=== PATIENT | female | born 1955 | race Caucasian/White ===

== ENCOUNTER → 2018-01-28 | Outpatient (CLI) | payer OTHER ==
[~2018-01-28] MED LIST: ALLOPURINOL 10100 M1 PO; COLCHICINE0.6 MG; DOXYCYCLINE 10100 M1 PO; FELODIPINE ER10 MG PO; FLEXERIL PO; FOLIC ACID1 MG PO; LANTUS SUBQ; LASIX 40 MG TAB40 M1; LASIX 40 MG TAB40 M2; LIPITOR40 MG PO; MAGNESIUM GLUC500 MG; METOLAZONE 5 MG5 M1; NORCO 5-325 TA1 EACH PO; NOVOLOG100 UNIT/1 SUBQ; OMEGA-31000 M1 PO; VITAMIN D3400 UNIT PO
== END ==
LOC: M.RAD 11:43
DX: Z12.31 Encounter for screening mammogram for malignant neoplasm of breast (principal); M85.89 Other specified disorders of bone density and structure, multiple sites; Z78.0 Asymptomatic menopausal state

== ENCOUNTER 2018-06-14 19:22 | Inpatient (IN) | payer OTHER ==
[~2018-06-14] VITALS: Ht 172.7 cm; Wt 129.0 kg
[2018-06-14] VITALS (9 sets, daily range): BP systolic 115–134; BP diastolic 52–65
[~2018-06-14 19:22] MED LIST changes: -COLCHICINE0.6 MG; -LASIX 40 MG TAB40 M2
[2018-06-14] MEDS ORDERED: COLCHICINE0.6 MG (19:30)
[2018-06-14] MEDS ORDERED: LASIX 40 MG TAB40 M2 (19:33)
[2018-06-14 20:07] LABS: HEMATOCRIT 37.2 % (37.0-47.0); HEMOGLOBIN 11.8 gm/dL (12.0-15.0); MCH 28.1 pg (26.0-34.0); MCHC 31.7 g/dL (28.0-37.0); MCV 88.8 fL (80.0-100.0); MPV 8.6 fl. (7.2-11.1); NUCLEATED RBCS 0 /100WBC; PLATELET COUNT* 155 thou/uL (150-400); RBC 4.19 mil/uL (4.20-5.00); WBC 15.5 thou/uL (4.0-11.0)
[2018-06-14 20:11] LABS: INFLUENZA A ANTIGEN None Detected (None Detect); INFLUENZA B ANTIGEN None Detected (None Detect)
[2018-06-14 20:26] LABS: ALBUMIN 2.4 g/dL (3.4-5.0); CALCIUM 9.5 mg/dL (8.5-10.1); CREATININE 3.6 mg/dL (0.6-1.3); POTASSIUM 3.4 mmol/L (3.5-5.1); TOTAL BILIRUBIN 0.7 mg/dL (<0.1-1.0); TOTAL PROTEIN 7.4 g/dL (6.4-8.2); URIC ACID* 7.9 mg/dL (2.6-7.2)
[2018-06-14 20:29] LABS: TROPONIN-I LEVEL 3.45 ng/mL (<0.06)
[2018-06-14 20:33] LABS: ABSOLUTE LYMPHOCYTES 0.9 thou/uL (0.8-5.3); ABSOLUTE MONOCYTES 0.8 thou/uL (0.0-1.2); ABSOLUTE NEUTROPHILS 13.8 thou/uL (1.6-8.1); ANISOCYTOSIS 1+; PLATELET ESTIMATE ADEQUATE
[2018-06-14 20:56] LABS: INR 1.2; PROTIME 11.8 Seconds (9.20-11.50)
[2018-06-14 23:30] LABS: ALBUMIN 2.1 g/dL (3.4-5.0); CALCIUM 9.1 mg/dL (8.5-10.1); CREATININE 3.4 mg/dL (0.6-1.3); MAGNESIUM 1.7 mg/dL (1.8-2.4); PHOSPHORUS* 3.3 mg/dL (2.5-4.9); POTASSIUM 3.3 mmol/L (3.5-5.1)
[2018-06-14 23:33] LABS: TROPONIN-I LEVEL 2.89 ng/mL (<0.06)
[2018-06-15] VITALS (78 sets, daily range): BP systolic 85–143; BP diastolic 45–71
--- NOTE | 2018-06-15 01:26 | NUR ---
Pt admitted to ICU from ED at 2215 on 06/14/2018. Pt states she has been ill since Wednesday, which is also the last day she took any insulin. BG 596 per CMP upon arrival to ED, then 603 per BMP which occured 10-15 minutes after insulin gtt initiated. At this point, BG remains above 501 with gtt recently increased to 7 units/hr per protocol. Will continue to monitor. Pt reports she decided to come to ED due to severe weakness and inability to get around at home. Pt lives by herself in apartment. All home medications reviewed, and pt's son directed to take pt's medications home with him. Pt states she just started taking a new medication for BP that she thinks begins with "m-i-k," perhaps micardis. States that was not among the home meds that were brought in when she went to ED. Will attempt to clarify in am.
[2018-06-15 03:11] LABS: ABSOLUTE LYMPHOCYTES 0.8 thou/uL (0.8-5.3); ABSOLUTE MONOCYTES 0.5 thou/uL (0.0-1.2); ABSOLUTE NEUTROPHILS 12.1 thou/uL (1.6-8.1); BASOPHILS 0.2 %; HEMATOCRIT 34.1 % (37.0-47.0); HEMOGLOBIN 10.9 gm/dL (12.0-15.0); MCH 28.8 pg (26.0-34.0); MCHC 32.1 g/dL (28.0-37.0); MCV 89.7 fL (80.0-100.0); MONOCYTES 3.8 %; MPV 9.1 fl. (7.2-11.1); NUCLEATED RBCS 0 /100WBC; PLATELET COUNT* 139 thou/uL (150-400); RDW-CV 17.9 % (10.5-14.5); WBC 13.4 thou/uL (4.0-11.0)
[2018-06-15 03:20] LABS: ALBUMIN 2.1 g/dL (3.4-5.0); CALCIUM 8.7 mg/dL (8.5-10.1); CREATININE 3.4 mg/dL (0.6-1.3); TOTAL BILIRUBIN 0.5 mg/dL (<0.1-1.0); TOTAL PROTEIN 5.8 g/dL (6.4-8.2)
[2018-06-15 03:25] LABS: POTASSIUM 2.9 mmol/L (3.5-5.1)
--- NOTE | 2018-06-15 06:44 | NUR ---
Pt experiencing intermittent and fleeting nausea late in the shift, especially when attempting to turn and when about to be given po meds. Held po meds and have not turned pt since 0300. Previous to that pt had requested to turn every 2 hours. Pt has bernard draining clear yellow urine. BG slowly decreasing with insulin gtt. Latest BG 342, insulin gtt running at 19 units/hr. K+ 2.9. Not able to take po meds at this time due to nausea. Will continue to monitor.
[2018-06-15 08:08] LABS: CHOLESTEROL 83 mg/dL (<200); HDL CHOLESTEROL 9 mg/dL (>40); LDL CHOLESTEROL 35 mg/dL (<100); TC:HDL 9.2 Ratio (Not establshd); TRIGLYCERIDE 196 mg/dL (<150); VLDL 39 mg/dL (<40)
[2018-06-15 08:11] LABS: SERUM ASSESSMENT Clear
[2018-06-15 08:38] LABS: URINE BILIRUBIN NEGATIVE (Negative); URINE BLOOD 3+ (Negative); URINE CLARITY CLEAR; URINE COLOR YELLOW; URINE GLUCOSE-RANDOM 1+ (Negative); URINE KETONES NEGATIVE (Negative); URINE LEUKOCYTES-REFLEX NEGATIVE (Negative); URINE NITRITE-REFLEX NEGATIVE (Negative); URINE PROTEIN 2+ (Negative); URINE SPECIFIC GRAVITY 1.025 (1.005-1.030); URINE UROBILINOGEN 0.2 E.U./dl (0.2-1.0)
[2018-06-15 08:48] LABS: BACTERIA-REFLEX 1-9 Few /HPF (None Seen); CASTS None Seen /LPF (None Seen); CRYSTALS None Seen /LPF (None Seen); MUCUS None Seen strn/LPF (None Seen); SQUAMOUS 0-3 Few /LPF (0-3); URINE RBC 3-10 Few /HPF (0-2); URINE WBC-REFLEX 0-5 Rare /HPF (0-5)
--- NOTE | 2018-06-15 11:37 | EKG ---
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1955 Requested By: Enoch Ha Order Number: [id number] MD: Miquel Nguyen Measurements Intervals [place] Rate: 92 P: 239 GA: 269 QRS: 39 QRSD: 112 T: 163 QT: 340 QTc: 421 Interpretive Statements Sinus or ectopic atrial rhythm Multiple ventricular premature complexes Prolonged GA interval Anteroseptal infarct, old Repol abnrm suggests ischemia, diffuse leads Compared to ECG 07/18/2017 01:48:23 Ventricular premature complex(es) now present Bradycardia no longer present Electronically Signed On 06-15-2018 11:36:54 HAND BUFFING WHEEL FORMER by Miquel Nguyen [email or web address] <ELECTRONICALLY SIGNED> By: Miquel Nguyen MD, FACC 06/15/18 1136 56 56 Miquel Nguyen MD, FACC /EPI
--- NOTE | 2018-06-15 15:01 | 2DMMODE ---
[place] [address] 2 D/M-MODE ECHOCARDIOGRAM Name: ONI OLIVARES Room: [facility] IN [facility]#: [id number] Admission: 06/14/18 Attend Phys: Francisco Wells Discharge: Date of : 51 Date of Service: 06/15/18 1500 Report #: [id number] THIS REPORT FOR: //name// APPROVED REPORT Study performed: 06/15/2018 10:26:00 EXAM: Comprehensive 2D, Doppler, and color-flow Echocardiogram Patient Location: In-Patient Room #: [facility] Status: routine BSA: 2.27 HR: 80 bpm BP: 136/59 mmHg Rhythm: NSR Other Information Technically limited study due to body habitus, poor endocardial definition. Indications Abnormal ECG Sepsis Elevated Troponin Echo Enhancing Agent Indication: Endocardial border delineation Agent(s) / Amount(s) Used: Optison 3 cc 2D Dimensions IVSd: 12.55 (7-11mm) LVOT Diam: 21.22 (18-24mm) LVDd: 56.15 mm PWd: 9.68 (7-11mm) Ascending Ao: 37.46 (22-36mm) LVDs: 41.95 (25-40mm) Aortic Root: 31.00 mm Volumes Left Atrial Volume (Systole) LA ESV Index: 39.80 mL/m2 Aortic Valve AoV Peak Thomas.: 2.05 m/s AO Peak Gr.: 16.73 mmHg LVOT Max P.29 mmHg AO Mean Gr.: 10.30 mmHg LVOT Mean P.21 mmHg LVOT Max V: 1.04 m/[place] [address] 2 D/M-MODE ECHOCARDIOGRAM Name: ONI OLIVARES Braxton Room: [address] IN .R.#: [id number] Admission: 06/14/18 Attend Phys: Francisco Wells Discharge: Date of : 51 Date of Service: 06/15/18 1500 Report #: [id number] AO V2 VTI: 40.07 cm LVOT Mean V: 0.69 m/s THOMAS (VTI): 1.78 cm2 LVOT V1 VTI: 20.17 cm Mitral Valve E/A Ratio: 1.36 MV Decel. Time: 142.96 ms MV E Max Thomas.: 1.11 m/s MV PHT: 41.46 ms MVA (PHT): 5.31 cm2 TDI E/Lateral E': 8.54 E/Medial E': 12.33 Medial E' Thomas.: 0.09 m/s Lateral E' Thomas.: 0.13 m/s Pulmonary Valve PV Peak Thomas.: 1.02 m/s PV Peak Gr.: 4.17 mmHg Tricuspid Valve RAP Estimate: 5.00 mmHg TR Peak Gr.: 24.14 mmHg RVSP: 29.00 mmHg PA Pressure: 29.00 mmHg Left Ventricle The left ventricle is normal size. inferior hypokinesis There is normal left ventricular wall thickness. Left ventricular systolic function is moderately decreased. LVEF is 30-35%. The left ventricular diastolic function is normal. Right Ventricle The right ventricle is normal size. The right ventricular systolic function is normal. Atria Left atrium is mildly dilated. The right atrium size is normal. Aortic Valve Mild aortic valve sclerosis. No aortic regurgitation is present. Mild aortic stenosis. Mitral Valve There is mitral annular calcification. Mild mitral regurgitation. No evidence of mitral valve stenosis. [place] [address] 2 D/M-MODE ECHOCARDIOGRAM Name: JALILCésarONI J Room: [address]#: [id number] Admission: 06/14/18 Attend Phys: Francisco Wells Discharge: Date of : 51 Date of Service: 06/15/18 1500 Report #: [id number] The tricuspid valve is normal in structure. Mild tricuspid regurgitation. No pulmonary hypertension. Pulmonic Valve The pulmonary valve is normal in structure. Trace pulmonic regurgitation. Great Vessels The aortic root is normal in size. IVC is normal in size and collapses >50% with inspiration. Pericardium There is no pericardial effusion. <Conclusion> LVEF is 30-35%. Left atrium is mildly dilated. Mild aortic stenosis. Mild mitral regurgitation. <ELECTRONICALLY SIGNED> By: Miquel Nguyen MD, FACC 06/15/18 1500 1500 99 Miquel Nguyen MD, FACC /INF
[2018-06-16] VITALS (13 sets, daily range): BP systolic 102–140; BP diastolic 56–74
[2018-06-16 03:52] LABS: HEMATOCRIT 32.4 % (37.0-47.0); HEMOGLOBIN 10.4 gm/dL (12.0-15.0); MCH 28.3 pg (26.0-34.0); MCHC 32.3 g/dL (28.0-37.0); MCV 87.7 fL (80.0-100.0); MPV 9.1 fl. (7.2-11.1); RBC 3.69 mil/uL (4.20-5.00); RDW-CV 17.9 % (10.5-14.5); WBC 12.8 thou/uL (4.0-11.0)
[2018-06-16 04:23] LABS: ALBUMIN 1.8 g/dL (3.4-5.0); CALCIUM 9.3 mg/dL (8.5-10.1); CREATININE 3.6 mg/dL (0.6-1.3); MAGNESIUM 1.9 mg/dL (1.8-2.4); POTASSIUM 3.6 mmol/L (3.5-5.1); TOTAL BILIRUBIN 0.5 mg/dL (<0.1-1.0); TOTAL PROTEIN 6.6 g/dL (6.4-8.2)
--- NOTE | 2018-06-16 05:50 | NUR ---
PT. PROGRESSING TOWARDS GOALS. IVF REMAIN INFUSING. PT. ORIENTED. SPARKS CATHETER REMAINS IN PLACE. SINUS RHYTHM WITH BBB. ONLY COMPLAINS OF PAIN WHEN TOUCHING LEFT SIDE, DENIED PAIN WHEN NOT BEING TOUCHED ON LEFT SIDE. VITAL SIGNS STABLE, ROOM AIR. CALL LIGHT IN REACH, WILL CONTINUE TO MONITOR.
--- NOTE | 2018-06-16 10:45 | NUR ---
SPOKE WITH PT, SHE IS ALERT AND ABLE TO ANSWER ALL QUESTIONS. PT SAYS SHE LIVES ALONE AND HAS BEEN ACTIVE AND INDEP. 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 WELL, MAYBE MY SON WOULD HELP ME IF I NEEDED IT.' PT PLANS ON RETURNING HOME ALONE. DISCUSSED ROLE OF CASE MGT, WILL CONTINUE TO FOLLOW. PT TRANSFERRING TO [facility] TODAY.
--- NOTE | 2018-06-16 12:55 | CON ---
[address] [address] CONSULTATION Name: AJLILCésarONI Braxton Room: [address] IN .R.#: [id number] Admission: 06/14/18 Attend Phys: Leyla Roberson Discharge: Date of : 51 Report #: [id number] THIS REPORT FOR: //name// CC: Sydney Wells DATE OF SERVICE: 06/15/2018 HISTORY OF PRESENT ILLNESS: The patient is a 62-year-old single white female who I was asked to see in the hospital after she is known to have an elevated troponin. The patient has an extensive past medical history. She has a long history of hypertension, diabetes, and hyperlipidemia. She apparently presented in 2001 with a myocardial infarction. She was admitted to [facility] at that time because she was living in [place], [place]. She was found to have coronary artery disease and underwent 5-vessel coronary artery bypass surgery. She does not see a cogeneration technician on a regular basis. She does not exercise on a regular basis. She has been hospitalized here at [facility] before. She actually had an echocardiogram last July that showed normal left ventricular systolic function, aortic sclerosis. She was last admitted here at that time with nausea and vomiting, felt to be possibly related to gastroenteritis. She states she does not exercise on a regular basis and is overweight, standing 5 feet 8 inches and weighing 255 pounds. She was doing well until about 5 days ago. She is at work when she felt weak and had a chill. Over the weekend, she had no appetite, felt weak. Her joints started to ache. She did have a cough and a sore throat. She started knowing some aching of her left wrist and left knee. She finally came to the Emergency Room last night with her son. She complained of nausea. She has had no recent vomiting or diarrhea. She denied any burning when she peed. She apparently quit taking her insulin recently. She has been confused. She was admitted last night. She was noted to have an abnormal troponin. Cardiology consultation was requested. She denies any chest pain, shortness of breath, palpitation, syncope. She has fallen recently. PAST MEDICAL HISTORY: Significant for hysterectomy, at which time she was found to have ovarian cancer. She has had a cholecystectomy. She has thyroid nodules. She had a lung biopsy for histoplasmosis. She has hypertension, diabetes, hyperlipidemia. MEDICATIONS: Consists of Lipitor, furosemide, insulin, amlodipine. ALLERGIES: SHE HAS AN ALLERGY TO PENICILLIN. FAMILY HISTORY: No heart disease. SOCIAL HISTORY: She is single, lives here in 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 No smoking or alcohol use. REVIEW OF SYSTEMS: She has had no history of stroke, asthma, peptic ulcer disease, liver disease, psychiatric illness, chronic skin condition. PHYSICAL EXAMINATION: GENERAL: Revealed an elderly female, lying in bed. She appeared in no distress. VITAL SIGNS: She had a blood pressure of 110/60, pulse is 80. She is afebrile. HEENT: She was anicteric, conjunctivae pink. Mucous membranes appear dry. NECK: Neck veins do not appear distended. No carotid bruits. CHEST: Clear to auscultation. CARDIOVASCULAR: Regular rate and rhythm, no murmur. ABDOMEN: Obese. EXTREMITIES: Had no edema. Dorsalis pedis pulse 1+ in the right. Could not be palpated on left. SKIN: Cool and dry. NEUROLOGIC: She is very drowsy. PSYCHIATRIC: Mood is appropriate. DIAGNOSTIC DATA: ECG last night showed a sinus rhythm, first degree AV block, occasional PVCs, and left bundle branch block. Her x-rays so far, she had a chest x-ray on admission last night that showed cardiomegaly. There were scattered heterogeneous opacities, possible multifocal pneumonia. LABORATORY DATA: Sodium 129, potassium 2.9, BUN 66, creatinine of 3.6, glucose 585, albumin 2.1. Troponin 3.45, BNP 35,000. Cholesterol 183, triglyceride 196, HDL 9, LDL 35. TSH 1.0. White blood cell count 13.4, hemoglobin 11.8, hematocrit 37.2. Her urinalysis 2+ protein, 3+ blood, negative leukocytes. IMPRESSION AND RECOMMENDATIONS: 1. Non-ST elevation myocardial infarction. No history of angina. I would not recommend cardiac catheterization at this time. I would start the patient on Plavix. 2. Coronary artery disease. Previous bypass surgery. 3. Acute kidney injury. 4. History of hypertension. 5. Diabetes. 6. Hyperlipidemia. The patient has been on a statin drug. 7. Obesity. 8. Fatigue. Concerned about viral illness. 9. History of ovarian cancer. <ELECTRONICALLY SIGNED> By: Miquel Nguyen MD, [facility] 06/16/18 1255 1255 [id number] Nguyen MD, FACC /nt
--- NOTE | 2018-06-16 17:31 | EKG ---
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
--- NOTE | 2018-06-16 18:50 | NUR ---
PATIENT HAS BEEN A/O X 4, SLIGHTLY FORGETFUL AT TIMES. CONTINUES ON COMPRESSOR OPERATOR PORTABLE TRACING SR/BB, ON RA. PATIENT RELUCTANT TO GET OUT BED, ENCOURAGEMENT PROVIDED AND PATIENT STILL REFUSED. ANTIBIOTICS INFUSED ORDERED. BLOOD SUGARS ELEVATED THIS SHIFT, PHYSICIAN NOTIFIED AND INSULIN GIVEN ORDERED. PATIENT CONTINUES WITH SPARKS CATHETER, DRAINING YELLOW URINE. SON AT BEDSIDE THIS SHIFT. SEEN BY CARDIOLOGY, ID, AND NEPHROLOGY THIS SHIFT. FALL PRECAUTIONS IN PLACE. HOURLY ROUNDING COMPLETED. CALL LIGHT WITHIN REACH. WILL CONTINUE WITH PLAN OF CARE.
[2018-06-16 19:08] LABS: IgA 251 mg/dL (87-352); IgG 1340 mg/dL (700-1600); IgM 80 mg/dL (26-217)
[2018-06-17] VITALS: BP 132/74
[2018-06-17 02:08] LABS: HEPATITIS B SURFACE AG Negative (Negative)
[2018-06-17 04:17] VITALS: BP 144/84
[2018-06-17 04:23] LABS: HEMATOCRIT 33.2 % (37.0-47.0); HEMOGLOBIN 10.8 gm/dL (12.0-15.0); MCH 28.4 pg (26.0-34.0); MCHC 32.7 g/dL (28.0-37.0); MCV 86.8 fL (80.0-100.0); MPV 9.5 fl. (7.2-11.1); RBC 3.82 mil/uL (4.20-5.00); RDW-CV 18.1 % (10.5-14.5); WBC 18.4 thou/uL (4.0-11.0)
[2018-06-17 04:40] LABS: CALCIUM 10.2 mg/dL (8.5-10.1); CREATININE 3.9 mg/dL (0.6-1.3); MAGNESIUM 2.2 mg/dL (1.8-2.4); PHOSPHORUS* 3.9 mg/dL (2.5-4.9); POTASSIUM 3.7 mmol/L (3.5-5.1); TOTAL BILIRUBIN 0.5 mg/dL (<0.1-1.0); TOTAL PROTEIN 7.3 g/dL (6.4-8.2)
--- NOTE | 2018-06-17 07:52 | NUR ---
PT SLEPT WELL OVERNIGHT. IV SL, ABX GIVEN ORDERED. DENIES PAIN. HS ACCUCHECK 385, INSULIN GIVEN. AM LABS DRAWN. SPARKS DRAINING YELLOW URINE. PT ASSISTED WITH LIMITED BED BATH THIS MORNING,STATES SHE FEELS SO MUCH BETTER. AO BUT FORGETFUL. TELE SR BBB. CALL LITE IN EASY REACH, BED ALARM ON FOR SAFETY.
[2018-06-17 08:15] VITALS: BP 138/81
[2018-06-17 08:50] VITALS: BP 138/81
--- NOTE | 2018-06-17 09:52 | CON ---
[address] [address] CONSULTATION Name: JALILCésarONI Braxton Room: [address] IN .R.#: [id number] Admission: 06/14/18 Attend Phys: Leyla Roberson Discharge: Date of : 51 Report #: [id number] THIS REPORT FOR: //name// CC: Sydney Wells CONSULTING PHYSICIAN: Francisco Wells DO. REASON FOR CONSULTATION: Acute kidney injury. HISTORY OF PRESENT ILLNESS: A 62-year-old female with a history of chronic kidney disease and insulin-dependent diabetes who was admitted with fever, diagnosed with pneumonia and sepsis and currently on antibiotics. Admission creatinine was 3.6. She follows with Dr. White as an outpatient, was last seen 03/18/2018, presently has no significant complaints. REVIEW OF SYSTEMS: Constitutional, psych, heme, eyes, ENT, respiratory, cardiac, GI, , endocrine, all negative except as documented above. PAST MEDICAL HISTORY: Insulin-dependent diabetes, chronic kidney disease stage 4, coronary artery disease with history of 5-vessel CABG in 2001, hypertension, dyslipidemia, history of gout, history of uterine cancer, history of hypercalcemia and primary hyperparathyroidism. FAMILY HISTORY: No known kidney disease. SOCIAL HISTORY: No tobacco. CURRENT MEDICATIONS: Reviewed. PHYSICAL EXAMINATION: VITAL SIGNS: Blood pressure 107/68, pulse 97, respirations 20, temperature 37.0. GENERAL: No acute distress. EYES: Extraocular movements intact. EARS: Externally normal. CARDIOVASCULAR: Regular rate and rhythm. LUNGS: Diminished breath sounds. ABDOMEN: Soft. MUSCULOSKELETAL: Nontender. PSYCHIATRIC: Awake, alert. LABORATORY DATA: White cell count 12.8, hemoglobin 10.4, platelets 152. Sodium 132, potassium 3.6, chloride 99, bicarbonate 20, BUN 81, creatinine 3.6, glucose 435, calcium 9.3, magnesium 1.9, albumin 1.8. ASSESSMENT AND PLAN: [place] [address] CONSULTATION Name: ONI OLIVARES Room: [address] IN [facility]#: [id number] Admission: 06/14/18 Attend Phys: Leyla Roberson Discharge: Date of : 51 Report #: [id number] 1. Acute kidney injury with an admission creatinine of 3.6 in the setting of a non-ST elevation myocardial infarction and pneumonia/sepsis. Chest x-ray does not reveal any pulmonary edema, ejection fraction of 30%-35% with mild aortic stenosis. UA showed protein and blood. 2. Chronic kidney disease stage 4, followed by Dr. White as an outpatient, last seen in 03/2018. Baseline creatinine in the low 2 range. In 07/2017, creatinine was 2.1. She has coronary artery disease and non-ST elevation myocardial infarction and history of 5-vessel coronary artery bypass graft. 3. Hypoalbuminemia with an albumin of 1.8. 4. Hyponatremia with a sodium of 132 on 06/16/2018. 5. Pneumonia/sepsis. 6. Insulin-dependent diabetes type 2 for at least 10-15 years. 7. History of pulmonary histoplasmosis. 8. Congestive heart failure with an ejection fraction of 30%-35% and mild aortic stenosis. 9. Proteinuria. 10. Hematuria. 11. History of hypertension. PLAN: 1. Creatinine is currently stable, but elevated from baseline. She is making urine. She likely has acute tubular necrosis in the setting of sepsis. 2. I will do a workup including an JAVI, anti-GBM, ANCA, hepatitis B, hepatitis C, SPEP, serum immunofixation, free light chain assay. 3. Check urine protein to creatinine ratio. 4. Discontinue milk of magnesia. 5. She had hypokalemia and is currently on potassium supplement. 6. On antibiotics, would use vancomycin with caution as this can cause nephrotoxicity. 7. She will need a repeat UA as an outpatient at a later date. 8. Check CK. 9. She is on Protonix, allopurinol, and cefepime all of which can be associated with acute interstitial nephritis. We will discontinue the allopurinol for now and Protonix could potentially be switched to an H2 sean and I will defer antibiotic management to Internal Medicine. We will follow closely. Thank you for requesting my opinion in the care and management of this patient. <ELECTRONICALLY SIGNED> By: Home Richter MD 06/17/18 0952 1119 [id number] Richter MD /nt
--- NOTE | 2018-06-17 11:01 | CON ---
[address] [address] CONSULTATION Name: MARSHALLONI Braxton Room: [address] IN .R.#: [id number] Admission: 06/14/18 Attend Phys: Leyla Roberson Discharge: Date of : 51 Report #: [id number] THIS REPORT FOR: //name// CC: Sydney Jennifer Wells DATE OF SERVICE: 06/16/2018 INFECTIOUS DISEASE CONSULTATION ATTENDING PHYSICIAN: Francisco Wells DO. REASON FOR EVALUATION: Gram-positive septicemia. HISTORY OF PRESENT ILLNESS: Chart reviewed, the patient examined. This is a 62-year-old with extensive medical history, including diabetes mellitus type 2, has known vasculopathy, coronary artery disease and renal insufficiency, who presented with fever and fairly marked encephalopathy that has been going on for several days. She did have associated gastrointestinal-related complaints of nausea with emesis and had cough. On evaluation, blood cultures were collected now with 2 out of 2 positive for gram-positive cocci from 06/14/2018 and repeat cultures from 06/15/2018 as well were both 2 out of 2 positive. Blood cultures on 06/16/2018 are pending. She did note she has had what appeared to be a perineal-type infection. She was treated with one week of antibiotics. She is still encephalopathic and cannot member the details, but perhaps 1-2 weeks ago. At this point, she has got much less pain and discomfort on the left labial site. Denies significant pulmonary-related complaints. No abdominal pain. She is empirically started on antimicrobial therapy, including vancomycin as well as cefepime. ALLERGIES: LISTED TO PENICILLINS. CURRENT MEDICATIONS: Include aspirin, cholecalciferol, fish oil, folic acid, pantoprazole, vancomycin, cefepime, insulin, oxycodone, p.r.n. analgesics and antiemetics. PAST MEDICAL HISTORY: As above, diabetes mellitus, insulin requiring, complicated by vasculopathy; known coronary artery disease with previous acute myocardial infarction, noted coronary artery bypass grafting; hypertension; hyperlipidemia; history of histoplasmosis apparently and a previous cholecystectomy. SOCIAL HISTORY: Nonsmoker, no ethanol. FAMILY HISTORY: [place] [address] CONSULTATION Name: ONI OLIVARES Room: [address]#: [id number] Admission: 06/14/18 Attend Phys: Leyla Roberson Discharge: Date of : 51 Report #: [id number] REVIEW OF SYSTEMS: Otherwise unremarkable for 10-point review of systems, with the exception of the above. PHYSICAL EXAMINATION: GENERAL: She is clearly encephalopathic. She is in moderate distress. She appears somewhat chronically ill, undernourished. VITAL SIGNS: Temperature 97.1, pulse 92, respirations 28 and blood pressure 130/70. SKIN: Warm, dry. HEENT: Somewhat disheveled. No conjunctivitis. No oral lesions. NECK: Supple. LUNGS: Few scattered crackles at the bases. HEART: Regular. Borderline tachycardic. May have a soft systolic murmur. ABDOMEN: Obese, mildly distended. There are no overt peritoneal signs. GENITOURINARY: In the labia, I do not appreciate any induration. There is really no evidence of inflammation. There is no fluctuance. She is not particularly tender during exam. RECTAL: Deferred. LABORATORY DATA: Influenza antigen was negative. Initial lactic acid was 2.7. Electrolytes: Sodium 127, potassium 3.4, chloride 89, bicarbonate 24, anion gap of 14, BUN and creatinine 65 and 3.6 and glucose of 596. AST of 48, ALT of 39. Albumin of 2.4. Total protein of 7.4. Estimated GFR of 13. CBC: White count of 15.5, H and H 11.8 and 37.2 and platelets of 155,000. Chest x-ray reveals opacity throughout both lungs. There is a question of multifocal pneumonia. Blood cultures as described above. CT chest, multifocal alveolar infiltrates throughout the right lung and ground-glass opacity in the lower left lung, probable multifocal pneumonia. ASSESSMENT AND PLAN: Gram-positive septicemia in the setting of pneumonitis, one would expect a Staph or strep etiology. We will continue combination therapy with vancomycin and cefepime. There are some mild valvular abnormalities on transthoracic echo. If indeed this is a Staphylococcus aureus, we would consider LEXII as well. At this point, she is quite tenuous. We will have to monitor expectantly as she may well get worse before she gets better. Discussed with the son. <ELECTRONICALLY SIGNED> By: Rasta Nielsen MD 06/17/18 1101 1651 [id number] Nielsen MD /nt
[2018-06-17 12:30] VITALS: BP 138/81
[2018-06-17 14:10] LABS: LAMBDA FREE LIGHT CHAINS 67.7 mg/L (5.7-26.3)
[2018-06-17 16:00] VITALS: BP 131/68
--- NOTE | 2018-06-17 17:04 | NUR ---
PATIENT HAS BEEN A/O X 4, FORGETFUL AND SLOW TO RESPOND THIS SHIFT AT TIMES. CONTINUES TO BE ON BOTTLE CLEANER TRACING SR/BBB. PATIENT HAS DENIED PAIN THIS SHIFT. CONTINUES ON RA. BLOOD SUGARS IMRPOVED THIS SHIFT, INSULIN GIVEN PRESCRIBED THIS SHIFT. PATIENT WORKED WITH PHYSICAL THERAPY THIS SHIFT. IV FLUIDS STARTED PER NEPHROLOGY'S ORDERS. SPARKS PATENT AND DRAINING. CONTINUES ON IV ANTIBIOTICS. + BLOOD CULTURE RESULTS GIVEN TO DR ESPINOSA AND DR PUGH. UPDATE PROVIDED TO PATIENT'S SON. FALL PRECAUTIONS IN PLACE. HOURLY ROUNDING COMPLETED. CALL LIGHT WITHIN REACH. WILL CONTINUE WITH PLAN OF CARE.
[2018-06-18] VITALS (9 sets, daily range): BP systolic 114–129; BP diastolic 55–85
--- NOTE | 2018-06-18 03:18 | NUR ---
ASSESSMENT: PT REMAIN ALERT TIMES TWO, CONFUSED TO SITUATION AND TIME. DOES APPROPRIATELY RECITE PLACE AND PERSON. PT'S BLOOD SUGAR AT 2100 WAS 67, 2 APPLE JUICES, 2 GRAM CRACKERS AND 1 PUDDING WAS GIVEN. AT 2130, BLOOD SUGAR WAS RETAKEN AND IT WAS 91. PT ADAMANTLY REFUSED TO HAVE ANY INSULIN GIVEN. PER SEP PT WAS TO RECEIVE 80 UNITS OF LANTUS. NONE WAS GIVEN. PT REQUESTED A PAIN PILL FOR RIGHT KNEE PAIN, THEN IMMEDIATELY REFUSED ANY PAIN MEDICATION. SR PER MONITORS. SLOW PROGRESS TOWARDS DC GOALS. WILL CONTINUE TO MONITOR.
[2018-06-18 04:54] LABS: HEMATOCRIT 32.1 % (37.0-47.0); HEMOGLOBIN 10.4 gm/dL (12.0-15.0); MCH 28.3 pg (26.0-34.0); MCHC 32.4 g/dL (28.0-37.0); MCV 87.4 fL (80.0-100.0); MPV 9.4 fl. (7.2-11.1); RBC 3.67 mil/uL (4.20-5.00); RDW-CV 18.4 % (10.5-14.5); WBC 20.6 thou/uL (4.0-11.0)
[2018-06-18 04:59] LABS: ALBUMIN 1.6 g/dL (3.4-5.0); CALCIUM 9.7 mg/dL (8.5-10.1); CREATININE 3.7 mg/dL (0.6-1.3); MAGNESIUM 2.2 mg/dL (1.8-2.4); PHOSPHORUS* 2.9 mg/dL (2.5-4.9); POTASSIUM 3.6 mmol/L (3.5-5.1); TOTAL PROTEIN 6.4 g/dL (6.4-8.2)
--- NOTE | 2018-06-18 15:41 | NUR ---
PATIENT CONFUSED, ALERT TO SELF. ROOM AIR, IV LEFT WRIST FLUIDS INFUSSING, INCREASE IN RATE DUE TO DEHYDRATION. DURING MORNING MEDICATION PASS, 30 MIN SPENT IN ROOM. PATEINT GRASPING AT AIR, SAYING YES SHE WILL TAKE MEDICATIONS, THEN SAY NO AND PULL AWAY WHEN MEDS ARE TOUCHING LIPS. WILL GET MEDICATION IN MOUTH AND TAKE OUT AND SAY WHAT ARE THESE, HOW DO I TAKE THIS, HELP ME, OH THANK YOU. ALL WHILE LOOKING IN OPPOSITE DIRECTION. ASKED TO LOOK AT NURSE, PATIENT EMEDIATELY RESPONDS WITH OPEN EYES AND THEN BACK TO GRASPING AT AIR AND LOOKING BLANKLY INTO SPACE. PHYSICIAN AWARE OF FINDINGS, NO NEW ORDERS AT THAT TIME. PATIENT DECLINED THROUGH LUNCH TIME, NOT TAKING ANYTHING BY MOUTH, WONT EAT, STAT CT OF HEAD ORDERED. PATIENT BECAME COMBATIVE DURING EXAM, NEEDED IV MEDICATION. SEEN BY NEUROLOGY AND INFECTIOUS DISEASE, NOTED STATUS HAD DETERIATED AND DECLINED, SEPSIS WORSENING. ORDER FOR TRANSFER TO ICU. PATIENT LEFT UNIT AT 1540. FAMILY VERY AGITATED WITH SITUATION, AT BEDSIDE AT 1230, CONCERNED WITH DECLINE. CONTINUALY AGITATED WITH NURSING STAFF, WAS TOLD PATIENT WAS TRANSFERING TO ICU, STATED WILL YARI IN WAITING ROOM. ALL BELONGINGS TAKEN WITH PATIENT. PATIENT BEDREST, UNABLE TO STAND AND WORK WITH THERAPY.
--- NOTE | 2018-06-18 16:00 | NUR ---
PT ARRIVED TO ROOM 1 VIA BED FROM 3W. REPORT RECEIVED. ASSESSMENT CHARTED. VSS. PT ALERT BUT ONLY ORIENTED TO SELF. DOPPLER OF UPPER AND LOWER EXTREMETIES TO BE DONE. MRI AND EEG TO FOLLOW. PT STATED THAT SHE IS NOT IN ANY PAIN. WILL CONTINUE TO MONITOR.
[2018-06-18 16:06] LABS: eGFR IF AFRICAN AMERICAN 15 (>59)
--- NOTE | 2018-06-18 17:15 | NUR ---
PT TO MRI. ORDERS RECEIVED FOR PRN ATIVAN PATIENT IS NOT COOPERATIVE WITH PROCEDURES.
--- NOTE | 2018-06-18 19:57 | NUR ---
MRI REPORT CALLED TO DR. OROPEZA. BLOOD CULTURES CALLED TO DR. ZAMAN. NEW ORDERS RECEIVED. MRI SPINE TO BE DONE SHORTLY. WILL CONTINUE TO MONITOR.
[2018-06-19] VITALS (13 sets, daily range): BP systolic 91–112; BP diastolic 32–53
[2018-06-19 04:36] LABS: HEMATOCRIT 32.3 % (37.0-47.0); HEMOGLOBIN 10.3 gm/dL (12.0-15.0); MCH 27.8 pg (26.0-34.0); MCHC 31.9 g/dL (28.0-37.0); MCV 87.3 fL (80.0-100.0); MPV 9.1 fl. (7.2-11.1); NUCLEATED RBCS 0 /100WBC; PLATELET COUNT* 193 thou/uL (150-400); RDW-CV 18.5 % (10.5-14.5); WBC 25.1 thou/uL (4.0-11.0)
[2018-06-19 04:47] LABS: ALBUMIN 1.4 g/dL (3.4-5.0); CALCIUM 9.4 mg/dL (8.5-10.1); CREATININE 3.4 mg/dL (0.6-1.3); MAGNESIUM 2.1 mg/dL (1.8-2.4); TOTAL BILIRUBIN 2.5 mg/dL (<0.1-1.0); TOTAL PROTEIN 6.1 g/dL (6.4-8.2)
[2018-06-19 06:05] LABS: PARATHYROID HORMONE 123 pg/mL (15-65)
[2018-06-19 06:17] LABS: ABSOLUTE EOSINOPHILS 0.8 thou/uL (0.0-0.7); ABSOLUTE LYMPHOCYTES 2.8 thou/uL (0.8-5.3); ABSOLUTE MONOCYTES 2.3 thou/uL (0.0-1.2); ABSOLUTE NEUTROPHILS 19.3 thou/uL (1.6-8.1); METAMYELOCYTES 3 %; PLATELET ESTIMATE ADEQUATE
[2018-06-19 06:18] LABS: MICROCYTES 1+
[2018-06-19 06:19] LABS: OVALOCYTES 1+; TARGET CELLS Occasional; TOXIC GRANULATION 3+
[2018-06-19 18:34] LABS: URINE BLOOD 3+ (Negative); URINE CLARITY CLEAR; URINE COLOR YELLOW; URINE GLUCOSE-RANDOM NEGATIVE (Negative); URINE KETONES 1+ (Negative); URINE LEUKOCYTES-REFLEX NEGATIVE (Negative); URINE NITRITE-REFLEX NEGATIVE (Negative); URINE PROTEIN 2+ (Negative); URINE SPECIFIC GRAVITY 1.025 (1.005-1.030); URINE UROBILINOGEN 0.2 E.U./dl (0.2-1.0)
[2018-06-19 18:41] LABS: URINE BILIRUBIN 1+ (Negative)
[2018-06-19 18:42] LABS: ICTOTEST (BILI CONFIRMATORY) Negative (Negative)
[2018-06-19 18:47] LABS: CASTS None Seen /LPF (None Seen); CRYSTALS None Seen /LPF (None Seen); MUCUS 0-3 Light strn/LPF (None Seen); SQUAMOUS 0-3 Few /LPF (0-3); URINE RBC 0-2 Rare /HPF (0-2); URINE WBC-REFLEX 0-5 Rare /HPF (0-5)
--- NOTE | 2018-06-19 19:36 | NUR ---
PT ASSESSMENT CHARTED. VSS THROUGHOUT SHIFT. PT ONLY FOLLOWING SIMPLE COMMANDS BUT NOT ALWAYS. PT IS VERY STIFF WHEN TURNED OR MOVED AND JUMPS EASILY WHEN MOVED AT ALL. PT NOTED TO HAVE SOME FACIAL TWITCHING AND ERRATIC SHOULDER MOVEMENTS.PT PUPILS 2 AND REACTIVE TO LIGHT. PT IS MOVING ALL EXTREMETIES. PT UNCOOPERATIVE ENOUGH TO DO A FULL NIH SCALE ON. Q2H TURNS TO MAINTAIN SKIN INTEGRITY. POTASSIUM REPLACED. SPARKS ONLY HAD 250 ORANGE COLORED URINE OUT. LEXII SCHEDULED FOR TOMORROW. PT DID NOT APPEAR TO BE IN ANY PAIN.
--- NOTE | 2018-06-19 22:22 | NUR ---
PT VERBLIZED PHRASE "OH GOD" WITH ANY TYPE OF TACTILE STIMULI, NO OTHER VERBAL COMMUNICATION NOTED, DOES NOT APPEAR TO FOLLOW ANY TYPE OF SIMPLE COMMANDS, LETHARGIC AROUSABLE TO TACTILE STIMULI, KEEPS EYES CLOSED MOST OF TIME EVEN WHEN AWAKE, PT NOTED DECREASED NEUROLOGICAL STATUS COMPARABLE TO PREVIIOUS NOC, CALLED DR OROPEZA TO UPDATE STATUS, NEW ORDERS RECIEVED STAT CT HEAD WITHOUT CONTRAST, NOTIFY DR OROPEZA IF HEMORRAGIC STROKE NOTED CT SCAN RESULTS, MRI BRAIN WITHOUT CONTRAST IN AM, MRI WITHOUT CONTRAST TO FOLLOW LEXII ORDERED IN AM, AND EEG IN AM, WILL INITATE ORDERS AND CONTINUE TO MONT[place] .
--- NOTE | 2018-06-19 22:33 | NUR ---
tranfered monitoring from cardiac technician in room to midray portable monitor to transport for stat CT SCAN of head.
--- NOTE | 2018-06-19 23:10 | NUR ---
BACK FROM CT, RN AT BEDSIDE THROGHOUT TRANSFER AND CT OF HEAD DONE.
[2018-06-20] VITALS (30 sets, daily range): BP systolic 89–135; BP diastolic 41–114
[2018-06-20 04:17] LABS: ABSOLUTE BASOPHILS 0.1 thou/uL (0.0-0.2); ABSOLUTE EOSINOPHILS 0.4 thou/uL (0.0-0.7); ABSOLUTE LYMPHOCYTES 2.4 thou/uL (0.8-5.3); ABSOLUTE MONOCYTES 2.5 thou/uL (0.0-1.2); ABSOLUTE NEUTROPHILS 24.1 thou/uL (1.6-8.1); BASOPHILS 0.5 %; EOSINOPHILS 1.2 %; HEMATOCRIT 31.3 % (37.0-47.0); HEMOGLOBIN 9.9 gm/dL (12.0-15.0); LYMPHOCYTES 8.2 %; MCH 28.1 pg (26.0-34.0); MCHC 31.7 g/dL (28.0-37.0); MCV 88.9 fL (80.0-100.0); MONOCYTES 8.5 %; MPV 9.5 fl. (7.2-11.1); NUCLEATED RBCS 0 /100WBC; PLATELET COUNT* 230 thou/uL (150-400); POLYS 81.6 %; RBC 3.53 mil/uL (4.20-5.00); RDW-CV 18.7 % (10.5-14.5); WBC 29.5 thou/uL (4.0-11.0)
[2018-06-20 04:34] LABS: CALCIUM 9.9 mg/dL (8.5-10.1); CREATININE 4.1 mg/dL (0.6-1.3); POTASSIUM 3.7 mmol/L (3.5-5.1)
[2018-06-20 10:10] LABS: GLOMERULR BASEM MEMBRN AB 3 units (0-20)
--- NOTE | 2018-06-20 10:43 | NUR ---
ICU ROUNDS: RN IN-CHARGE OF THE PATIENT INFORMS THAT THE PATIENT IS FROM HOME, AND WAS INDEPENDENT AND ACTIVE PRIOR TO ADMISSION. PATIENT IS ALERT TODAY, BUT FOLLOWING COMMANDS. PATIENT TO HAVE MRI, AND DIALYSIS CATH PLACED TODAY. CM WILL REMAIN AVIALABLE TO ASSIST AND FOLLOW NEEDED.
[2018-06-20 11:11] LABS: ANA INTERPRETATION Positive (Negative)
--- NOTE | 2018-06-20 11:54 | EKG ---
[place] [address] ELECTROCARDIOGRAM REPORT Name: ONI OLIVARES Room: [address] ADM IN .R.#: [id number] Admission: 06/14/18 Attend Phys: Leyla Roberson Discharge: Date of : 51 Report #: [id number] THIS REPORT FOR: //name// [facility] Test Date: 2018-06-20 Test Time: 08:36:59 Pat Name: ONI OLIVARES Department: Room: [address] Gender: F Testing Analyst: : 1955 Requested By: Miquel Nguyen Order Number: [id number] Neo MD: Miquel Nguyen Measurements Intervals [place] Rate: 82 P: 225 LA: 312 QRS: 10 QRSD: 116 T: 189 QT: 390 QTc: 456 Interpretive Statements Sinus or ectopic atrial rhythm Sinus pause Prolonged LA interval left bundle branch block Compared to ECG 06/16/2018 08:35 no change Electronically Signed On 06-20-2018 11:54:29 PLAY LEADER by Miquel Nguyen [email or web address] <ELECTRONICALLY SIGNED> By: Miquel Nguyen MD, [facility] 06/20/18 1154 0836 Miquel Nguyen MD, [facility] /EPI
--- NOTE | 2018-06-20 15:30 | NUR ---
PT INTUBATED EARLIER. NURSING FIBERGLASS LAMINATOR NOTIFIED THE SON BY PHONE PRIOR TO INTUBATION WITH THE DECLINE IN PT'S CONDITION, SHE SPOKE WITH SON IN PERSON ONCE HE ARRIVED TO UPDATE HIM ON PT'S CONDITION,
[2018-06-20 16:19] LABS: BE -11.6 mmol/L (-2 to +3); HCO3 13.7 mmol/L (22.0-26.0); PCO2 28.9 mmHg (35.0-45.0); PO2 151.7 mmHg (75.0-100.0); pH 7.293 (7.340-7.450)
--- NOTE | 2018-06-20 17:19 | TEE ---
[place] [address] TRANSESOPHAGEAL ECHOCARDIOGRAM Name: MARSHALLONI Braxton Room: [address] IN [facility]#: [id number] Admission: 06/14/18 Attend Phys: Francisco Wells Discharge: Date of : 51 Date of Service: 06/20/18 1719 Report #: [id number] THIS REPORT FOR: //name// APPROVED REPORT Study performed: 06/20/2018 13:07:28 EXAM: Transesophageal Echocardiogram Patient Location: In-Patient Room #: [facility] Status: routine BSA: 2.27 HR: 81 bpm BP: 111/61 mmHg Other Information Study Quality: Good Indications Rule out endocarditis Echo Enhancing Agent Indication: Rule out Shunt Agent(s) / Amount(s) Used: Agitated Saline 20 cc Procedure After obtaining informed consent, patient underwent transesophageal echo in the Bedside. Type of Sedation : General Anesthesia Sedation was administered by Anesthesiologist. Sedation start time: 1337 Case end Time: 1352 Sedation was achieved intravenously with: Propofol (200) Echo enhancement indication: R/O Septal defect. Echo enhancement agent administered: Agitated Saline The LEXII was performed without complications. Throughout the procedure, the blood pressure, pulse oximetry, cardiac rhythm, and rate were monitored. The patient tolerated the procedure without adverse effects. Recovery from conscious sedation was uneventful and vital signs were stable. Left Ventricle The left ventricle is normal size. There is lateral wall hypokinesis. There is normal left ventricular wall thickness. Left ventricular systolic function is mildly decreased. LVEF is 40-45%. [address] [address] TRANSESOPHAGEAL ECHOCARDIOGRAM Name: MARSHALLONI Braxton Room: [address] IN [facility]#: [id number] Admission: 06/14/18 Attend Phys: Francisco Wells Discharge: Date of : 51 Date of Service: 06/20/18 1719 Report #: [id number] Right Ventricle The right ventricle is normal size. The right ventricular systolic function is normal. Atria No thrombus is visualized in the left atrium or appendage. Left atrium is dilated. Interatrial septum is intact without evidence of ASD or PFO. The right atrium size is normal. Aortic Valve The aortic valve is normal in structure. no vegetations noted No aortic regurgitation is present. There is no aortic valvular stenosis. Mitral Valve The mitral valve is normal in structure. Moderate mitral regurgitation. No evidence of mitral valve stenosis. Tricuspid Valve The tricuspid valve is normal in structure. Mild tricuspid regurgitation. Pulmonic Valve The pulmonary valve is normal in structure. There is no pulmonic valvular regurgitation. Great Vessels The aortic root is normal in size. The ascending aorta is dilated. Pericardium There is no pericardial effusion. <Conclusion> LVEF is 40-45%. No thrombus is visualized in the left atrium or appendage. Left atrium is dilated. Interatrial septum is intact without evidence of ASD or PFO. no vegetations noted Moderate mitral regurgitation. <ELECTRONICALLY SIGNED> By: Miquel Nguyen MD, FACC 06/20/181718 18 18 Miquel Nguyen MD, FACC /INF
--- NOTE | 2018-06-20 20:11 | NUR ---
PT INTUBATED AT 1505. HR AND BLOOD PRESSURE DROPPED DURING LEXII AND PATIENT GASPING FOR AIR WHEN SHE STARTED TO WAKE UP FROM SEDATION. PT UNABLE TO OXYGENATE WELL WITH USE OF NASAL AIRWAY AND MASK AT 15L. PT INCONSOLABLE AND CONTINUE TO TRY AND SHAKE MASK OFF FACE. HR AND BLOOD PRESSURE IMPROVED AFTER PATIENT WAS INTUBATED. OG TUBE PLACED. XRAY CONFIRMED THAT BOTH THE ET AND OG ARE IN PROPER POSITION. VERSED AND FENTANYL DRIPS STARTED FOR SEDATION. PULMONARY CONSULTED. NEUROLOGY CONTACTED TO SKIP MRI THIS AFTERNOON PATIENT IS NOT STABLE ENOUGH THIS EVENING. OK WITH WAITING UNTIL TOMORROW. ABGS CALLED TO BOTH PULMONARY AND NEPHROLOGY. NO NEW ORDERS RECEIVED. DIALYSIS CATHETER PLACED AT 1630 BY VASCULAR IN RIGHT GROIN. DIALYSIS SCHEDULED FOR 1999. LEVOPHED DRIP ORDER GIVEN FOR PRESSURE SUPPORT IF PATIENT NEEDS DURING DIALYSIS. PT'S SON UPDATED. SON SAHARA WOULD APPRECIATE AN UPDATE TOMORROW NOW THAT PROCEDURES HAVE BEEN DONE.
[2018-06-21] VITALS (50 sets, daily range): BP systolic 84–129; BP diastolic 34–62
[2018-06-21 02:30] LABS: HEMATOCRIT 28.1 % (37.0-47.0); HEMOGLOBIN 9.2 gm/dL (12.0-15.0); MCH 28.5 pg (26.0-34.0); MCHC 32.6 g/dL (28.0-37.0); MCV 87.4 fL (80.0-100.0); MPV 9.1 fl. (7.2-11.1); RBC 3.22 mil/uL (4.20-5.00); RDW-CV 18.5 % (10.5-14.5); WBC 24.3 thou/uL (4.0-11.0)
[2018-06-21 02:53] LABS: ALBUMIN 1.4 g/dL (3.4-5.0); CALCIUM 8.5 mg/dL (8.5-10.1); CREATININE 3.4 mg/dL (0.6-1.3); PHOSPHORUS* 2.7 mg/dL (2.5-4.9); POTASSIUM 3.1 mmol/L (3.5-5.1); TOTAL BILIRUBIN 1.4 mg/dL (<0.1-1.0); TOTAL PROTEIN 5.3 g/dL (6.4-8.2)
--- NOTE | 2018-06-21 03:00 | NUR ---
PT HYPOTENSIVE, LEVOPHED GTT TO BE INITATED ORDERED AFTER CENTRAL LINE AVAILABLE, DR MUÑOZ FROM ED, CENTRAL LINE WILL BE PLACED BY DR MUÑOZ FOR MEDICAL NECCISITY. PT UNABLE TO GIVE CONSENT REMAINS ON VENTILATOR WITH SEDATION.
[2018-06-21 05:40] LABS: BE -3.5 mmol/L (-2 to +3); HCO3 20.7 mmol/L (22.0-26.0); PCO2 34.3 mmHg (35.0-45.0); pH 7.399 (7.340-7.450)
[2018-06-21 05:43] LABS: PO2 43.4 mmHg (75.0-100.0)
--- NOTE | 2018-06-21 07:00 | NUR ---
POOR PROGRESSION TOWARDS GOALS, LEVOPHED GTT TITRATED 6MCG/MIN TO MAINTAIN MAP 60, RESTLESS VIGOROUSLY NODDING HEAD, MOVING BILAT HANDS AND LEGS WITH ANY TYPE OF TACTILE STIMULI, ATIVAN 0.5MG IVP GIVEN X2 FOR RESTLESS, SOMEWHAT HELPFUL, REMAINS ON FENTANYL AND VERSED GTT FOR SEDATION, RIGHT JUGULAR PLACED BY DR MUÑOZ FOR VASOPRESSOR ADMINISTRATION SAFETY, BITING DOWN ON ETTT WITH ANY TYPE OF ORAL CARE, BITE BLOCK PLACED BY RT. BED REMAINS IN LOW AND LOCKED POSITON, HOURLY ROUNDING DONE PER POLICY.
--- NOTE | 2018-06-21 09:58 | EKG ---
[place] [address] ELECTROCARDIOGRAM REPORT Name: ONI OLIVARES Braxton Room: [address] ADM IN M.R.#: [id number] Admission: 06/14/18 Attend Phys: Leyla Roberson Discharge: Date of : 51 Report #: [id number] THIS REPORT FOR: //name// [facility] Test Date: 2018-06-20 Test Time: 11:40:36 Pat Name: ONI OLIVARES Department: Room: [address] Gender: F Cigar Maker: REAL : 1955 Requested By: Miquel Nguyen Order Number: [id number] Reading MD: Demarcus Powell Measurements Intervals [place] Rate: 67 P: IA: QRS: 38 QRSD: 118 T: 199 QT: 421 QTc: 445 Interpretive Statements Atrial fibrillation Nonspecific intraventricular conduction delay Probable anterolateral infarct, age indeterm Abnormal T, consider ischemia, lateral leads Baseline wander in lead(s) V4 Compared to ECG 06/20/2018 08:36:5 Electronically Signed On 06-21-2018 9:58:32 CERTIFIED WELDER by Demarcus Powell [email or web address] <ELECTRONICALLY SIGNED> By: Demarcus Powell MD, FACC 06/21/18 0958 1140 1140 Demarcus Powell MD, FAC /EPI
--- NOTE | 2018-06-21 17:02 | NUR ---
PT CARE ASSUMED AFTER REPORT. 2ND DEGREE TYPE 1, SB ON MONITOR. PT ON VENT LIGHT SEDATION. SPARKS TO DD. PT RECEIVING HEMO DIALYISIS AT THIS TIME. PT TEMP THIS AFTERNOON 102 AXILLARY. ACETAMENOPHEN GIVEN. TEMP 101.4 AXILLARY ON RECHECK. ICE PACKS PLACED UNDER ARMS. SOFT WRIST RESTRAINTS IN PLACE. R TRIPLE LUMES IJ FUNCTIONING WELL. TUBE FEEDING STARTED AND RUNNING AT 30/ML/H. GAOL OF 50 ML/H. NO S/S OF PAIN. SLOW TO PROGRESS TOWARDS GOALS.
[2018-06-21 18:06] LABS: GLOBULIN TOTAL 3.7 g/dL (2.2-3.9); M-SPIKE Not Observed g/dL (Not Observed)
[2018-06-22] VITALS (34 sets, daily range): BP systolic 85–128; BP diastolic 33–55
[2018-06-22 06:31] LABS: HEMATOCRIT 28.3 % (37.0-47.0); MCH 28.1 pg (26.0-34.0); MCHC 31.9 g/dL (28.0-37.0); MCV 88.1 fL (80.0-100.0); MPV 9.3 fl. (7.2-11.1); NUCLEATED RBCS 0 /100WBC; PLATELET COUNT* 261 thou/uL (150-400); RBC 3.21 mil/uL (4.20-5.00); WBC 27.1 thou/uL (4.0-11.0)
--- NOTE | 2018-06-22 06:37 | NUR ---
Pt sedated on fentanyl and versed gtts; however, pt shakes head side to side when touched or repositioned. Shortly after tactile stimulus ceases, pt returns to sleep. BP stable, remains on norepinephrine gtt. TF at goal of 50 ml/hr, 5 ml residuals. Urine output 200 mls overnight. T 101.2 this am; 1 gram Tylenol given. Will continue to monitor.
[2018-06-22 06:52] LABS: ALBUMIN 1.3 g/dL (3.4-5.0); CALCIUM 8.9 mg/dL (8.5-10.1); CREATININE 3.1 mg/dL (0.6-1.3); POTASSIUM 3.7 mmol/L (3.5-5.1); TOTAL BILIRUBIN 1.2 mg/dL (<0.1-1.0); TOTAL PROTEIN 6.1 g/dL (6.4-8.2)
[2018-06-22 07:08] LABS: ABSOLUTE EOSINOPHILS 0.3 thou/uL (0.0-0.7); ABSOLUTE LYMPHOCYTES 2.4 thou/uL (0.8-5.3); ABSOLUTE MONOCYTES 1.6 thou/uL (0.0-1.2); ABSOLUTE NEUTROPHILS 22.8 thou/uL (1.6-8.1); METAMYELOCYTES 4 %
[2018-06-22 07:09] LABS: ANISOCYTOSIS 2+; PLATELET ESTIMATE ADEQUATE; POLYCHROMASIA 1+
--- NOTE | 2018-06-22 07:34 | OP ---
[facility] [address] [place] [address] OPERATIVE REPORT Name: ONI OLIVARES Room: [address] IN .R.#: [id number] Admission: 06/14/18 Attend Phys: Leyla Roberson Discharge: Date of : 51 Report #: [id number] THIS REPORT FOR: //name// CC: Sydney Wells DATE OF SERVICE: 06/20/2018 PREPROCEDURE DIAGNOSIS: Acute kidney injury, need for dialysis. POSTPROCEDURE DIAGNOSIS: Acute kidney injury, need for dialysis. PROCEDURE: 1. Ultrasound-guided access to the right common femoral vein. 2. Temporary right common femoral dialysis catheter placement. SURGEON: Erickson Dave DO. SUPERINTENDENT: None. ANESTHESIA: Local. COMPLICATIONS: None. IMPLANTS: A 20 cm temporary dialysis catheter placed in the right common femoral vein. FINDINGS: Right common femoral vein was soft and compressible, suitable for access. Catheter had good venous return, flushed and aspirated easily. CLINICAL HISTORY: The patient is a 62-year-old woman, admitted with sepsis, acute kidney injury, who is in need of dialysis support. DESCRIPTION OF PROCEDURE: After consent was obtained, the patient was already in the ICU, intubated and sedated. The right groin was prepped and draped in usual sterile fashion. Timeout was performed identifying correct patient and procedure. Using ultrasound guidance, the right common femoral vein was identified, was accessed with an 18 gauge needle. These images were preserved. Using Seldinger technique, a wire was passed with ease. A small skin incision was made. The tract was then dilated and the 20 cm catheter was then passed over the wire. The catheter was then aspirated and flushed with saline. Both ports were applied. The catheter was then secured to the [place] [address] OPERATIVE REPORT Name: ONI OLIVARES Room: [address] [facility] IN [facility]#: [id number] Admission: 06/14/18 Attend Phys: Leyla Roberson Discharge: Date of : 51 Report #: [id number] patient tolerated the procedure well. The catheter may be used immediately for dialysis needs. <ELECTRONICALLY SIGNED> By: Erickson Dave DO 06/22/18 0734 1855 1910Erickson Dave DO /nt
--- NOTE | 2018-06-22 07:51 | CON ---
[address] [address] CONSULTATION Name: MARSHALLONI Braxton Room: [address] ADM IN .R.#: [id number] Admission: 06/14/18 Attend Phys: Leyla Roberson Discharge: Date of : 51 Report #: [id number] THIS REPORT FOR: //name// CC: Sydney Wells REASON FOR CONSULTATION: Respiratory failure. HISTORY OF PRESENT ILLNESS: The patient was intubated and sedated during my visit. No family at the bedside. I did review the medical records and discussed with the nursing staff. This is a 62-year-old female patient admitted to this facility on 06/14/2018 through the Emergency Room when she presented with fever of 5 days duration. Her temperature reported to be 101 and per the records, she had been sick for 5 days associated with nausea, vomiting, retching, cough and lower extremity edema without sick contact and no recent travel. She had no diarrhea or abdominal pain and apparently she denies shortness of breath upon presentation. Also, she was found to have change in mental status and elevated blood sugar. She was admitted as a case of pneumonia and sepsis. During this hospitalization, she had a complicated course. She was evaluated by Cardiology and found to have non-ST elevation AR. Her initial echocardiogram demonstrated EF of 30-35%. Also, her workup demonstrated a stroke on the MRI. Per discussion with the nurses during the stay, she was confused, agitated, not much responsive and yesterday an attempted transesophageal echo ended up with complication of respiratory failure and she ended up intubated. She is currently on sedation using Versed and fentanyl. She still has episodes of agitation during my visit and she was on vasopressors. She had also arrhythmias. Her blood culture was positive for ____ and she is being followed by ID for possible endocarditis, MRSA septicemia and embolic stroke. Neurology is also following along. During my visit, she was sedated, nonresponsive. PAST MEDICAL HISTORY: Per the records, history of uterine cancer, status post hysterectomy; history of thyroid nodule, history of previous lung biopsy demonstrating histoplasmosis, history of hypertension, hyperlipidemia, coronary artery disease, history of herniated disk in the lower back, previous history of CABG, diabetes mellitus, chronic pain. PAST SURGICAL HISTORY: Include CABG, lung biopsy positive for histoplasmosis, back surgery in the past, hysterectomy for uterine cancer, cholecystectomy. FAMILY HISTORY: Positive for heart disease and cancer. SOCIAL HISTORY: Per the record, never smoked, no history of heavy alcohol use. REVIEW OF SYSTEMS: At this point, not obtainable. PHYSICAL EXAMINATION: [place] [address] CONSULTATION Name: ONI OLIVARES Room: [address] IN [facility]#: [id number] Admission: 06/14/18 Attend Phys: Leyla Roberson Discharge: Date of : 51 Report #: [id number] VITAL SIGNS: She was on vasopressors. Her blood pressure is 119/49, breathing 28 times a minute, pulse rate of 82. GENERAL: Overweight lady, lying in bed, intubated, on sedation, on vasopressors, also IV fluid noted. Sometimes, she would move her head right and left even on sedation, but not following commands. HEENT: Head, normocephalic, atraumatic. Pupils are reactive to light. External ears look healthy and normal. ET tube in place. Moist mucous membrane. NECK: Thick. No palpable lymph node. No palpable thyroid. CHEST: Diminished air movement bilaterally, mostly at the bases. No definite wheezes. Some crackles or rhonchi heard at the bases. HEART: S1, S2. ABDOMEN: Soft, lax, benign, nontender. Positive bowel sounds. No masses felt. LOWER EXTREMITIES: Trace edema equally bilaterally. No calf tenderness. PSYCHIATRIC: Mood and affect could not be evaluated. NEUROLOGIC: She is sedated, but head movement was noted. SKIN: Normal for age and race, no rash. LYMPHATICS: No swollen lymph nodes. LABORATORY DATA: She had extensive workup done, reviewed, including a CT chest upon hospitalization that showed multifocal lobular infiltrate and a ground glass opacity both lungs, mostly on the right side with a progression on the followup chest x-ray. The last chest x-ray from this morning showed progression of the infiltrate. Her cultures showing in the blood MRSA. Her white blood count today is 24,000 with hemoglobin 9.4, platelets 221. Previous CBCs were reviewed. Initially, white blood count was 15.5 upon hospitalization with a left shift. Her INR 1.2 upon hospitalization. Her creatinine is 3.4, it was 3.6 upon hospitalization. The highest was 4.1. Her JAVI was positive. Influenza A and B were negative. Her bicarbonate initially 24 dropped to as low as 16 yesterday, today is 20. Her ABGs after intubation yesterday 7., this was done on 40% FiO2. This morning reading for a blood gas actually it was venous. Her O2 sat on the monitor was 100%. IMPRESSION: 1. Acute hypoxic respiratory failure. 2. Metabolic acidosis. 3. Acute renal failure. 4. Methicillin-resistant Staphylococcus aureus septicemia. 5. Possible endocarditis. 6. Acute stroke, possible embolic stroke. 7. Pneumonia. 8. Pulmonary infiltrate. 9. Mental status change. 10. Diabetes mellitus. 11. Septic shock. 12. Cardiomyopathy with ejection fraction of 35%, chronic systolic congestive [facility] [address] [place] [address] CONSULTATION Name: ONI OLIVARES Room: [address] IN [facility].#: [id number] Admission: 06/14/18 Attend Phys: Leyla Roberson Discharge: Date of : 51 Report #: [id number] heart failure. 13. Aortic stenosis. 14. Right carotid artery stenosis. PLAN: The patient is currently on antibiotic, vancomycin and rifampin per ID. Cardiology is following along. Also Nephrology following and she was started on dialysis yesterday. There is some improvement in her bicarbonate. Discussed with Nephrology, they will stop the IV fluids. She is on vasopressors with a goal to wean the vasopressor down as tolerated. At this point, the patient will be on the vent. We will wean the FiO2 down as slowly as tolerated. She needs follow up ABGs and chest x-rays. Currently, we will keep the current plan of sedation for now until she is more stable. She is on scheduled nebulization treatments. Concern is that the patient has multiple acute comorbidities in a state of shock with mental status change secondary to stroke, would expect a challenge weaning the patient off the vent. However, once she is more hemodynamically stable, we will start the weaning process. If the mental status does not improve, we may need to consider trach and PEG. Condition remains critical. We will follow along with you. Thank you for the consult. <ELECTRONICALLY SIGNED> By: Rachelle Cervantes MD 06/22/18 0751 0922 [id number] Palomares MD /nt
--- NOTE | 2018-06-22 08:00 | NUR ---
OG TUBE ADVANCED TO 60. CHEST XRAY OBTAIN TO EVALUATE FOR ASPIRATION. KUB OBTAINED TO CHECK OG PLACEMENT.
[2018-06-22 09:11] LABS: BE -1.5 mmol/L (-2 to +3); HCO3 21.4 mmol/L (22.0-26.0); PO2 115.9 mmHg (75.0-100.0); pH 7.472 (7.340-7.450)
[2018-06-22 11:31] LABS: ICTOTEST (BILI CONFIRMATORY) Positive (Negative); URINE BILIRUBIN 1+ (Negative); URINE BLOOD 3+ (Negative); URINE CLARITY CLEAR; URINE COLOR YELLOW; URINE GLUCOSE-RANDOM NEGATIVE (Negative); URINE KETONES TRACE (Negative); URINE LEUKOCYTES-REFLEX NEGATIVE (Negative); URINE NITRITE-REFLEX NEGATIVE (Negative); URINE PROTEIN 2+ (Negative); URINE SPECIFIC GRAVITY >= 1.030 (1.005-1.030); URINE UROBILINOGEN 0.2 E.U./dl (0.2-1.0)
[2018-06-22 11:45] LABS: BACTERIA-REFLEX 1-9 Few /HPF (None Seen); COARSE GRANULAR CASTS 0-3 Few /LPF (None Seen); FINE GRANULAR CASTS 0-3 Few /LPF (None Seen); MUCUS 0-3 Light strn/LPF (None Seen); SQUAMOUS 0-3 Few /LPF (0-3); URINE WBC-REFLEX 0-5 Rare /HPF (0-5)
[2018-06-22 11:46] LABS: AMORPHOUS URATES Few /LPF (None Seen)
[2018-06-22 11:47] LABS: RENAL EPITHELIAL CELLS 0-3 Few /LPF (None Seen)
[2018-06-22 18:09] LABS: COMPLEMENT-C4 12 mg/dL (14-44)
--- NOTE | 2018-06-22 18:52 | NUR ---
PT ASSESSMENT CHARTED. LEVOPHED DRIP STILL RUNNING. INCREASED RATE FOR DIALYSIS. VITAL SIGNS OTHERWISE STABLE. NO MRI TODAY DUE TO INSTABILITY OF PATIENT. NEURO OK WITH WAITING UNTIL MORE STABLE. DIALYSIS FOR 3.5 HOURS TONIGHT WITH PLANS TO TAKE OFF 1L.
[2018-06-23] VITALS (58 sets, daily range): BP systolic 82–123; BP diastolic 35–69
[2018-06-23 04:18] LABS: HEMATOCRIT 25.8 % (37.0-47.0); HEMOGLOBIN 8.3 gm/dL (12.0-15.0); MCH 28.4 pg (26.0-34.0); MCHC 32.1 g/dL (28.0-37.0); MCV 88.6 fL (80.0-100.0); MPV 8.7 fl. (7.2-11.1); RBC 2.91 mil/uL (4.20-5.00); RDW-CV 19.3 % (10.5-14.5); WBC 23.5 thou/uL (4.0-11.0)
[2018-06-23 04:33] LABS: ALBUMIN 1.3 g/dL (3.4-5.0); CALCIUM 8.8 mg/dL (8.5-10.1); CREATININE 2.9 mg/dL (0.6-1.3); MAGNESIUM 1.8 mg/dL (1.8-2.4); POTASSIUM 3.7 mmol/L (3.5-5.1); TOTAL BILIRUBIN 1.1 mg/dL (<0.1-1.0); TOTAL PROTEIN 5.7 g/dL (6.4-8.2)
--- NOTE | 2018-06-23 06:14 | NUR ---
VSS, LEVOPHED GTT TITRATED TO MAINTAIN MAP >65. VERSED AND FENTANYL GTT'S INFUSING ORDERED, PT REMAINS EASILY AROUSABLE AND THRASHES WITH MINIMAL VERBAL OR TACTILE STIMULI. PT HAS BEEN TURNED Q2HR THROUGHOUT THE SHIFT.
[2018-06-23 06:29] LABS: BE 1.2 mmol/L (-2 to +3); HCO3 24.8 mmol/L (22.0-26.0); PCO2 35.7 mmHg (35.0-45.0)
--- NOTE | 2018-06-23 10:02 | NUR ---
7779 ASSUMED CARE OF PATIENT. PLEASE SEE DOCUMENTED ASSESSMENT. PT HAS FREQUENT INVOLUNTARY MOVEMENT. SEE SEDATION CHARTING. MONITOR SHOWS TYPE 1 SECOND DEGREE BLOCK WITH VARYING RATES.
--- NOTE | 2018-06-23 12:27 | NUR ---
SON HERE TO VISIT. DR OROPEZA SPOKE WITH SON
[2018-06-23 13:24] LABS: URINE BLOOD 3+ (Negative); URINE CLARITY CLEAR; URINE COLOR YELLOW; URINE GLUCOSE-RANDOM TRACE (Negative); URINE KETONES 1+ (Negative); URINE LEUKOCYTES-REFLEX TRACE (Negative); URINE PROTEIN 3+ (Negative); URINE SPECIFIC GRAVITY >= 1.030 (1.005-1.030); URINE UROBILINOGEN 0.2 E.U./dl (0.2-1.0)
[2018-06-23 13:25] LABS: URINE BILIRUBIN 2+ (Negative); URINE NITRITE-REFLEX POSITIVE (Negative)
[2018-06-23 13:28] LABS: ICTOTEST (BILI CONFIRMATORY) Negative (Negative)
[2018-06-23 13:29] LABS: AMORPHOUS URATES Few /LPF (None Seen); BACTERIA-REFLEX 1-9 Few /HPF (None Seen); CASTS None Seen /LPF (None Seen); SQUAMOUS 0-3 Few /LPF (0-3); URINE RBC 0-2 Rare /HPF (0-2); URINE WBC-REFLEX None Seen /HPF (0-5)
--- NOTE | 2018-06-23 17:09 | NUR ---
MINIMAL PROGRESSION TOWARDS GOALS. ABLE TO TITRATE DOWN ON LEVOPHED. TOLERATING TUBE FEEDING. NO CHANGE IN NEURO STATUS. URINE OUTPUT MINIMAL. TREATED FOR FEVER. SON HAS VISITED.
[2018-06-24] VITALS (37 sets, daily range): BP systolic 78–140; BP diastolic 34–62
[2018-06-24 03:47] LABS: HEMATOCRIT 25.3 % (37.0-47.0); HEMOGLOBIN 8.1 gm/dL (12.0-15.0); MCH 28.4 pg (26.0-34.0); MCHC 31.9 g/dL (28.0-37.0); MPV 8.9 fl. (7.2-11.1); RBC 2.84 mil/uL (4.20-5.00); RDW-CV 19.5 % (10.5-14.5); WBC 19.5 thou/uL (4.0-11.0)
[2018-06-24 03:58] LABS: ALBUMIN 1.2 g/dL (3.4-5.0); CALCIUM 9.1 mg/dL (8.5-10.1); PHOSPHORUS* 6.3 mg/dL (2.5-4.9)
[2018-06-24 03:59] LABS: CREATININE 4.1 mg/dL (0.6-1.3)
--- NOTE | 2018-06-24 05:43 | NUR ---
PT. NOT PROGRESSING TOWARDS GOALS. LEVOPHED GTT REMAINS INFUSING AT 9MCG/MIN. PT. CONTINUES TO HAVE INVOLUNTARY MOVEMENTS, SHAKING HEAD BACK AND FORTH. FENTANYL/VERSED GTT'S. TUBE FEEDINGS REMAIN INFUSING. T-MAX 99.9. APPEARS TO BE RESTING COMFORTABLE AT THIS TIME, WILL CONTINUE TO MONITOR.
[2018-06-24 06:00] LABS: BE 0.7 mmol/L (-2 to +3); HCO3 24.8 mmol/L (22.0-26.0); PCO2 37.6 mmHg (35.0-45.0); PO2 105.3 mmHg (75.0-100.0); pH 7.437 (7.340-7.450)
[2018-06-24 11:07] LABS: MAGNESIUM 1.9 mg/dL (1.8-2.4); TOTAL PROTEIN 5.3 g/dL (6.4-8.2)
[2018-06-24 14:07] LABS: ANTI-DNA SCREEN >300 IU/mL (0-9); ANTI-RNP <0.2 AI (0.0-0.9)
--- NOTE | 2018-06-24 16:48 | NUR ---
PT CARE ASSUMED AFTER REPORT. ASSESSMENTS COMPLTE. 2ND DEGREE TYPE1/BBB ON MONITOR. PT ON VENT WITH SEDATION INFUSING. PRESEDEX STARTED PER ORDER AND VERSED WEANED OFF. TOLERATING PRESEDEX WELL. DECREASED HEAD MOVEMENT ON PRESEDEX. APPEARS MORE COMFORTABLE. SOFT WRIST RESTRAINTS IN PLACE. TUBE FEEDING PER OG. PT FEBRILE WITH MAX AXILLARY TEMP OF 99.9. TYLENOL GIVEN. SPARKS TO DD WITH VERY LITTLE OUTPUT. NO S/S OF PAIN. NOT PROGRESSING TOWARDS GOALS.
[2018-06-25] VITALS (34 sets, daily range): BP systolic 77–134; BP diastolic 30–58
--- NOTE | 2018-06-25 00:28 | NUR ---
PATIENT TEMP 102.9 ORAL. CALLED INFECTIOUS DISEASE. NO FURTHER ORDERS GIVEN.
[2018-06-25 04:02] LABS: HEMATOCRIT 28.5 % (37.0-47.0); HEMOGLOBIN 9.1 gm/dL (12.0-15.0); MCH 28.2 pg (26.0-34.0); MCHC 31.8 g/dL (28.0-37.0); MCV 88.7 fL (80.0-100.0); MPV 8.8 fl. (7.2-11.1); RBC 3.21 mil/uL (4.20-5.00); RDW-CV 19.9 % (10.5-14.5); WBC 17.5 thou/uL (4.0-11.0)
[2018-06-25 04:20] LABS: ALBUMIN 1.2 g/dL (3.4-5.0); CALCIUM 8.9 mg/dL (8.5-10.1); CREATININE 3.5 mg/dL (0.6-1.3); MAGNESIUM 2.1 mg/dL (1.8-2.4); POTASSIUM 4.1 mmol/L (3.5-5.1); TOTAL BILIRUBIN 0.8 mg/dL (<0.1-1.0); TOTAL PROTEIN 6.3 g/dL (6.4-8.2)
--- NOTE | 2018-06-25 06:43 | NUR ---
PATIENT SLOWLY PROGRESSING. NO ACUTE HEMODYNAMIC CHANGES OVERNIGHT. CHANGED SINGLE STRENGTH LEVO TO QUAD. TITRATED DOWN PT TOLERATED WELL. CONTINUES ON PRECEDEX AND FENTANYL TITRATED DOWN FOR WEANING TRIAL THIS A.M. PT FIBRILE MOST OF THE NIGHT MAX TEMP 202.9 WAS NOTIFIED NO NEW ORDERS GIVEN. PT NOW IS 99.8. PT TUBE FEED TURNED OFF AT BEGINNING D/T HIGH RESIDUALS OF 480 AND WEANING TRIAL THIS. PT RECIEVED FULL BED BATH TOLERATED WELL. WILL CONTINUE TO MONITOR.
--- NOTE | 2018-06-25 15:44 | EEG ---
[address] [address] EEG STUDY REPORT Name: ONI OLIVARES Room: [address] IN M.R.#: [id number] Admission: 06/14/18 Attend Phys: Leyla Roberson Discharge: Date of : 51 Report #: [id number] THIS REPORT FOR: //name// CC: Sydney Wells DATE OF SERVICE: 06/18/2018 This patient's EEG was done by placing the electrode by standard 10-20 system of electrode placement. Both referential and sequential montages were used for recording. Background activity in this patient's EEG is about 6 Hz and 30 microvolt. It is a slow activity throughout the record. Photic stimulation was unremarkable. No active epileptiform activity was noticed during this record. IMPRESSION: This is a severely abnormal EEG because it is disorganized and poorly formed. That is a nonspecific abnormality, which can occur with encephalopathy, effect of psychotropic medication, dementia, etc. No active epileptiform activity was noticed. Slowing appeared to be bilateral in this patient. Thank you very much for this referral. <ELECTRONICALLY SIGNED> By: Clark Pearson MD 06/25/18 1544 [id number] Pearson MD /nt
--- NOTE | 2018-06-25 15:44 | CON ---
[address] [address] CONSULTATION Name: ONI OLIVARES Room: [address] ADM IN .R.#: [id number] Admission: 06/14/18 Attend Phys: Leyla Roberson Discharge: Date of : 51 Report #: [id number] THIS REPORT FOR: //name// CC: Sydney Wells DATE OF SERVICE: 06/18/2018 HISTORY OF PRESENT ILLNESS: This is a 62-year-old female patient whose consultation was requested this morning because of altered mental status. I reviewed this patient's record and discussed the patient with Dr. Alvarado from Infectious Disease and the nurses in detail. The patient is unable to provide any history at all. She is very confused and barely responsive. She did receive some Ativan, but even before that she was pretty confused and was not able to talk properly. According to the son, the patient's symptoms started on Wednesday. She was running some temperature and may have had some respiratory symptoms. She had progressively become worse since then and admitted here on 06/14/2018 with a suspected infection. Her white count in fact has persistently gone up since then. According to the family, the patient continues to deteriorate as far as mental status is concerned. 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 She does have significant cardiac problems in the past and looks like she had another ID. She is on Plavix, heparin as well as aspirin when she is here. 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 I talked to the patient's son and apparently this patient did not have any contraindication for doing MRI, like any metal in her body, but I did ask the radiologist to look at her chest x-ray or chest CT to make sure there is no contraindication. The patient and her son do not think there is any history of stroke in the past. Presently, she is having renal issues where her GFR is only 12. Her creatinine has been high for a long time as far back as in 2005. She also has a high creatinine, but it has gone up to some extent. She did have a CT scan of the head, which does not show any acute changes. This was a relevant 14-point review of systems, which I can get. PAST MEDICAL HISTORY: Positive for ID. FAMILY HISTORY: Negative for early age stroke. SOCIAL HISTORY: The patient has a supportive son and I talked to him. PHYSICAL EXAMINATION: Is pretty limited. She is pretty sleepy, but I can wake her up. When I wake her up, she does not know what month it is, [place] [address] CONSULTATION Name: ONI OLIVARES Room: [address] IN ..#: [id number] Admission: 06/14/18 Attend Phys: Leyla Roberson Discharge: Date of : 51 Report #: [id number] she is in. Her speech looks pretty slurred. I cannot tell about the cranial nerve examination because she is not able to cooperate. She did move her right upper extremity, to some extent she moved her left upper extremity also. But she did not move it on the shoulder. When I asked her to move her legs, either she does not understand the instructions or she does not move it. She is complaining of pain in the shoulder area and she did not move her arm there, but she did squeeze my finger on the left side. Right arm is the only one she moved. When I tried to do the position sense, I cannot do it. She does not have any reflexes, but she does not cooperate either in that regard and it is very difficult to position her. So, examination was very difficult. Similarly, checking for meningeal sign is difficult because she does not relax even when I move her shoulder that looks very tender. LABORATORY DATA: Indicate her troponin is high at 2.7. Her liver functions are off. She has some free kappa quantitative. Her albumin is very low at 1.6 and her cholesterol is very low at 35 and HDL is only 9. This is a very unusual pattern because in 2006 her LDL was in fact high at 139. IMPRESSION: This is a critically ill patient who needs workup to determine the etiology of her symptoms. She is severely encephalopathic, that is probably because of systemic infection. What systemic infection she has needs to be further worked up. As I understand, she has a staph sepsis and because of that an abscess need to be considered in the differential. The workup of abscess is going to be difficult in this patient. As I understand from the son, she is claustrophobic and she became agitated because of claustrophobia even in the CT scan. She has to be given Ativan. She still looks drowsy and we will see if MRI can be done on her. We will start with MRI of the brain and MRV to see if we can find any pathology there. She may need MRI of the whole spine to make sure there is no abscess there or epidural abscess there. This is because the other option of doing a myelogram in this patient is not a good option with the renal failure. Her nutritional status looks poor with very low albumin, low prealbumin and low cholesterol, which was normal before. That will aggravate her encephalopathy. Other etiology like intracranial sinus thrombosis can cause similar symptoms, they are less likely. We will work her up if we can. Typically it is desirable to do the spinal tap in these patients. Unfortunately, it looks like she had an ID and she is on Plavix. They will not do spinal tap for 3-5 days after the patient is off Plavix and taking her off Plavix may not be a good idea when she is having an ID. I discussed with the patient's family that she is critically ill and the workup is very difficult because many of the doors are closed in that regard [place] [address] CONSULTATION Name: ONI OLIVARES Braxton Room: [address] IN [facility].#: [id number] Admission: 06/14/18 Attend Phys: Leyla Roberson Discharge: Date of : 51 Report #: [id number] I will get an EEG done. We will start with an MRI of the brain and see if that can be done. We need to make sure there is no contraindication for MRI. If she cooperates with MRI of the brain and if no other source of abscess is found, then we may have to do an MRI of the spine also in this patient to make sure there is no epidural abscess, although the patient does not have any history which will predispose her for epidural abscess. The patient is on the floor and I talked to the nurses and they are going to move her in ICU and I completely agree with it. All of it was discussed with the patient and the critical nature of the illness was discussed with them. More than 50 minutes of time was spent taking care of this patient today and majority of that time was spent counseling the patient's family and coordinating her care. <ELECTRONICALLY SIGNED> By: Clark Pearson MD 06/25/18 1544 1545 [id number] Pearson MD /nt
--- NOTE | 2018-06-25 15:44 | EEG ---
[facility] [address] [place] [address] EEG STUDY REPORT Name: ONI OLIVARES Room: [address] IN ..#: [id number] Admission: 06/14/18 Attend Phys: Leyla Roberson Discharge: Date of : 51 Report #: [id number] THIS REPORT FOR: //name// CC: Sydney Wells DATE OF SERVICE: 06/20/2018 This patient is being evaluated for encephalopathy. This patient's EEG is very disorganized and poorly formed. Background activity is about 4-5 Hz. It is intermixed with theta and delta range slowing. Triphasic waves, which is frontally predominant has appeared since last time. It is difficult to rule out some seizure activity versus artifact in this patient. IMPRESSION: This is a severely abnormal electroencephalogram consistent with a diagnosis of encephalopathy. Since last electroencephalogram, triphasic waves have appeared, which would indicate worsening encephalopathy in this patient. Some sharper activity may be present, but that is difficult to confirm because the patient's electroencephalogram has a lot of artifact. Close monitoring is recommended. Thank you very much for this referral. <ELECTRONICALLY SIGNED> By: Clark Pearson MD 06/25/18 1544 1703 [id number] Pearson MD /nt
--- NOTE | 2018-06-25 18:11 | NUR ---
PT CARE ASSUMED AFTER REPORT. ASSESSMENTS COMPLETE. PT REMAINS ON VENT AND SEDATED. PT DID NOT TOLERATE WEANING TRIAL THIS AFTERNOON. SEDATION INCREASED BUT PT CONTINUED TO BE VERY RESTLESS, SHAKING HER HEAD FROM SIDE TO SIDE FREQUENTLY AND POSTURING. VERSED GTT REATARTED PER DR DR ORDER. SPARKS TO DD WITH 100 ML OUTPUT. DIALYISIS TODAY WITH 2L FLUID REMOVED. REQUIRED INCREASED LEVOPHED DURING DIALYSIS TO MAINTAIN BP. SINCE TITRATED DOWN. NOT PROGRESSING TOWARDS GOALS.
[2018-06-26] VITALS (16 sets, daily range): BP systolic 105–119; BP diastolic 43–85
[2018-06-26 04:12] LABS: HEMATOCRIT 26.8 % (37.0-47.0); HEMOGLOBIN 8.5 gm/dL (12.0-15.0); MCH 28.1 pg (26.0-34.0); MCHC 31.5 g/dL (28.0-37.0); RBC 3.01 mil/uL (4.20-5.00); RDW-CV 20.2 % (10.5-14.5); WBC 25.9 thou/uL (4.0-11.0)
[2018-06-26 04:28] LABS: ALBUMIN 1.1 g/dL (3.4-5.0); CREATININE 3.4 mg/dL (0.6-1.3); POTASSIUM 4.1 mmol/L (3.5-5.1); TOTAL BILIRUBIN 1.3 mg/dL (<0.1-1.0); TOTAL PROTEIN 6.2 g/dL (6.4-8.2)
--- NOTE | 2018-06-26 06:29 | NUR ---
NO APPARENT PROGRESSION TOWARD GOALS. PT REMAINS SEDATED ON VENTILATOR. FENTANYL, VERSED, AND PRECEDEX GTTS INFUSING AT MAX DOSE YET PT THRASHES HEAD AND PULLS ARMS AGAINST RESTRAINTS WITH MINIMAL VERBAL OR TACTILE STIMULI. TEMP MAX 99.6F, NO TYLENOL GIVEN THIS SHIFT. TF RESIDUAL 480ML AT 0430, RESIDUAL DISCARDED AND TF PLACED ON HOLD AT THAT TIME. SUBSEQUENTLY BLOOD GLUCOSE 63 AT 0600, 1 AMP D50 GIVEN IVP. LEVOPHED GTT TITRATED FOR MAP >65. COMPLETE BED BATH GIVEN. PT HAS BEEN TURNED Q2HR THROUGHOUT THE SHIFT.
--- NOTE | 2018-06-26 08:46 | NUR ---
REPORT RECEIVED FROM INEZ SINGLETON. ASSESSMENT CHARTED. LOW GRADE TEMP. INTUBATED AND SEADTED ON VENT. AM MEDS GIVEN. TUBE FEEDINGS ON HOLD DUE TO PT NOT TOLERATING AT THIS TIME. WILL CONTINUE TO MONITOR.
[2018-06-26 09:57] LABS: BE 1.3 mmol/L (-2 to +3); HCO3 25.2 mmol/L (22.0-26.0); PCO2 36.1 mmHg (35.0-45.0); PO2 66.3 mmHg (75.0-100.0); pH 7.461 (7.340-7.450)
--- NOTE | 2018-06-26 19:42 | NUR ---
TF OFF ALL DAY DUE TO HIGH RESIDUALS PER INEZ BROWNLEE. GASTRIC CONTENTS ASPIRATED AT THIS TIME, 250ML BILE/TF RESIDUAL IN STOMACH. TF NOT RESTARTED AT THIS TIME, PHYSICIAN NOTIFIED.
--- NOTE | 2018-06-26 20:21 | NUR ---
REGLAN IVP INITIATED PER DR FUENTES ORDER, KUB TO BE COMPLETED TONIGHT
[2018-06-27] VITALS (9 sets, daily range): BP systolic 41–102; BP diastolic 19–51
--- NOTE | 2018-06-27 04:28 | NUR ---
TUBE FEED OFF ALL SHIFT. GASTRIC ASPIRATE 300ML AT THIS TIME, DISCARDED.
[2018-06-27 04:52] LABS: HEMATOCRIT 24.7 % (37.0-47.0); HEMOGLOBIN 7.8 gm/dL (12.0-15.0); MCHC 31.4 g/dL (28.0-37.0); MCV 89.3 fL (80.0-100.0); MPV 9.3 fl. (7.2-11.1); RBC 2.77 mil/uL (4.20-5.00); RDW-CV 19.8 % (10.5-14.5)
[2018-06-27 05:06] LABS: CALCIUM 9.3 mg/dL (8.5-10.1); POTASSIUM 4.4 mmol/L (3.5-5.1); TOTAL BILIRUBIN 1.3 mg/dL (<0.1-1.0); TOTAL PROTEIN 6.3 g/dL (6.4-8.2)
[2018-06-27 05:21] LABS: CREATININE 4.6 mg/dL (0.6-1.3)
--- NOTE | 2018-06-27 06:21 | NUR ---
STABLE ON VENT, SEE ASSESSMENTS. TUBE FEED REMAINS OFF AT THIS TIME. COMPLETE BED BATH GIVEN. TURNED Q2HR THROUGHOUT THE SHIFT.
--- NOTE | 2018-06-27 13:00 | NUR ---
PT EARLIER. SPOKE WITH SON AT BEDSIDE, PROVIDED SUPPORT. SON SAID HE THINKS HIS MOTHER HAS A BURIAL PLAN, HE HAS ALREADY CALLED THE HOME AND THEY ARE LOOKING UP TO SEE IF SHE HAS A PLAN WITH THEM. THEY WILL CALL THE SON BACK. TOLD HIM ONCE HE HAS CONFIRMED WITH THEM THAT SHE HAS A BURIAL PLAN, TO LET THE NURSE KNOW THE NAME AND PHONE NUMBER OF THE HOME. THE NURSE WILL CALL TO [employer]RANGE FOR PICK-UP OF THE BODY.
--- NOTE | 2018-06-27 13:57 | NUR ---
REPORT RECEIVED FROM INEZ SINGLETON. ASSESSMENT CHARTED. PT ON LEVO IN THE AM, AND FENTANYL GTT AND PRECEDEX GTT AND VERSED GTT. WILL CONTINUE TO MONITOR.
--- NOTE | 2018-06-27 14:05 | NUR ---
DIALYSIS STARTED ON PT ABOUT 1000. DIALYSIS CATHETER WAS NOT FUNCTIONING PROPERLY SO VASCULAR ATTEMPTED TO REPLACE LINE. DIALYSIS LINE WAS REPLACED AND PT WAS STARTED ON DIALYSIS AGAIN AROUND 1130. BP STARTED TO DROP SYS BELOW 50. RECYCLED CUFF AND STILL HAD A LOW BP. LEVO GTT TURNED UP TO MAX AND SAHARA(SON) CALLED [facility] PAGED. PT DNR STATUS. SON VERIFIED PT CODE STATUS AND WISHED TO MAINTAIN THAT STATUS.PHYSICAN AT BEDSIDE AT THAT TIME. PRONOUNCED AT 1145. ANTIONETTE(SON) WAS NOTIFIED AND CAME TO HOSPITAL AROUND 1300.
--- NOTE | 2018-06-28 09:49 | OP ---
[facility] [address] [place] [address] OPERATIVE REPORT Name: ONI OLIVARES Room: [address] IN M.R.#: [id number] Admission: 06/14/18 Attend Phys: Leyla Roberson Discharge: 06/27/18 Date of : 51 Report #: [id number] THIS REPORT FOR: //name// CC: Sydney Timroma Wells DATE OF SERVICE: 06/27/2018 PREOPERATIVE DIAGNOSES: 1. Acute renal failure, in need of dialysis access. 2. Nonfunctioning right femoral temporary dialysis catheter. POSTOPERATIVE DIAGNOSES: 1. Acute renal failure, in need of dialysis access. 2. Nonfunctioning right femoral temporary dialysis catheter. PROCEDURE: 1. Exchange of temporary dialysis catheter. 2. Repeat exchange of temporary dialysis catheter due to nonfunctioning due to catheter length. SURGEON: Enoch Suarez MD. PUBLIC SAFETY DIRECTOR: Letty Quintana, nurse practitioner. COMPLICATIONS: None. ESTIMATED BLOOD LOSS: 10 mL. SPECIMEN: None. ANESTHESIA: The patient is intubated and sedated. INDICATION FOR PROCEDURE: The patient is a 62-year-old white female who is severely ill and septic. She had a temporary dialysis catheter placed by my partner, Dr. Dave 1 week ago. This is a 20-cm length catheter. It had been working last week, but is no longer functional today. I suspect that the length of the catheter is inhibiting its ability of use. Informed consent was implied due to the emergent nature of the procedure and the fact the patient needs urgent dialysis. DESCRIPTION OF PROCEDURE: At the patient's bedside, her right groin and catheter were prepped and draped in usual sterile fashion. I opened a 20-cm temporary dialysis catheter. This is the longest length that we had available. I placed a wire down the old catheter. I removed the old catheter in its entirety. Using Seldinger technique, I placed a new catheter. [place], [place] [address] OPERATIVE REPORT Name: ONI OLIVARES Braxton Room: [address]#: [id number] Admission: 06/14/18 Attend Phys: Leyla Roberson Discharge: 06/27/18 Date of : 51 Report #: [id number] catheter appeared to flush and draw easily. However, when we hooked it up to the dialysis machine, the pressures were too high to be usable. I went to the Interventional Radiology suite and I obtained a 40-cm tunneled dialysis catheter. We did not have any longer temporary dialysis catheters and the patient needed an urgent dialysis. I opened the tunneled 40-cm dialysis catheter. I used the wire to exchange to the dilators for the tunneled dialysis catheter. I then placed the sheath for the tunneled dialysis catheter using a Seldinger technique. I then flooded the 40-cm tunneled dialysis catheter down up into the inferior vena cava. Both ports flushed without difficulty. I secured the catheter cuff at the level of the skin incision. We hooked the catheter to the dialysis machine and it ran without alarming. I dressed the catheter in standard fashion. Again, this is a tunneled dialysis catheter, which is not tunneled and placed as a temporary catheter for its length. It will need to be treated as a temporary dialysis catheter and removed within a week to 10 days. If the patient requires longer dialysis, likely needs a tunneled dialysis catheter depending on her condition at that time. <ELECTRONICALLY SIGNED> By: Erickson Dave DO 06/28/18 0949 1130 [id number] Suarez MD /nt
== END 2018-06-27 11:45 | DRG 870 ==
LOC: M.ERS 19:22 → M.ICU 21:09 → M.TBA-ER 21:09 → M.3W 21:09 → M.ICU 22:27 → M.3W 06-16 11:03 → M.ICU 06-18 15:44
PROVIDERS: Emergency Medicine; Family Medicine; Internal Medicine; Internal Medicine Nephrology; Internal Medicine Pulmonary Disease; Specialist; ADMIT Internal Medicine
PROC: 0BH17EZ Insertion of Endotracheal Airway into Trachea, Via Natural or Artificial Opening (ICD-10-PCS; principal; 2018-06-20)
PROC: 5A1955Z Respiratory Ventilation, Greater than 96 Consecutive Hours (ICD-10-PCS; principal; 2018-06-20)
PROC: 02HV33Z Insertion of Infusion Device into Superior Vena Cava, Percutaneous Approach (ICD-10-PCS; principal; 2018-06-20)
PROC: B548ZZA Ultrasonography of Superior Vena Cava, Guidance (ICD-10-PCS; principal; 2018-06-20)
PROC: B24BZZ4 Ultrasonography of Heart with Aorta, Transesophageal (ICD-10-PCS; principal; 2018-06-20)
PROC: 02PYX3Z Removal of Infusion Device from Great Vessel, External Approach (ICD-10-PCS; 2018-06-27)
PROC: 06H033Z Insertion of Infusion Device into Inferior Vena Cava, Percutaneous Approach (ICD-10-PCS; 2018-06-27)
PROC: 0JH63XZ Insertion of Tunneled Vascular Access Device into Chest Subcutaneous Tissue and Fascia, Percutaneous Approach (ICD-10-PCS; 2018-06-27)
DX: A41.02 Sepsis due to Methicillin resistant Staphylococcus aureus (principal); J18.9 Pneumonia, unspecified organism; N17.0 Acute kidney failure with tubular necrosis; E11.00 Type 2 diabetes mellitus with hyperosmolarity without nonketotic hyperglycemic-hyperosmolar coma (NKHHC); J96.01 Acute respiratory failure with hypoxia; R65.21 Severe sepsis with septic shock; I21.4 Non-ST elevation (NSTEMI) myocardial infarction; E43 Unspecified severe protein-calorie malnutrition; I33.0 Acute and subacute infective endocarditis; N18.4 Chronic kidney disease, stage 4 (severe); I13.0 Hypertensive heart and chronic kidney disease with heart failure and stage 1 through stage 4 chronic kidney disease, or unspecified chronic kidney disease; E87.1 Hypo-osmolality and hyponatremia; G93.40 Encephalopathy, unspecified; I42.9 Cardiomyopathy, unspecified; I50.22 Chronic systolic (congestive) heart failure; I76 Septic arterial embolism; Z68.41 Body mass index [BMI] 40.0-44.9, adult; I25.10 Atherosclerotic heart disease of native coronary artery without angina pectoris; E78.5 Hyperlipidemia, unspecified; E11.65 Type 2 diabetes mellitus with hyperglycemia; E66.9 Obesity, unspecified; G89.29 Other chronic pain; I35.0 Nonrheumatic aortic (valve) stenosis; R74.0 Nonspecific elevation of levels of transaminase and lactic acid dehydrogenase [LDH]; E21.0 Primary hyperparathyroidism; I65.21 Occlusion and stenosis of right carotid artery; I44.1 Atrioventricular block, second degree; D64.9 Anemia, unspecified; E87.6 Hypokalemia; I95.9 Hypotension, unspecified; I66.9 Occlusion and stenosis of unspecified cerebral artery; I34.0 Nonrheumatic mitral (valve) insufficiency; B95.62 Methicillin resistant Staphylococcus aureus infection as the cause of diseases classified elsewhere; Z28.21 Immunization not carried out because of patient refusal; Z95.1 Presence of aortocoronary bypass graft; I25.2 Old myocardial infarction; Z79.4 Long term (current) use of insulin; Z90.49 Acquired absence of other specified parts of digestive tract; Z88.0 Allergy status to penicillin; Z90.710 Acquired absence of both cervix and uterus; Z85.43 Personal history of malignant neoplasm of ovary; Z82.49 Family history of ischemic heart disease and other diseases of the circulatory system; Z80.8 Family history of malignant neoplasm of other organs or systems